=== PATIENT | male | born 1950 | race Caucasian/White ===

== ENCOUNTER 2018-02-03 18:17 | Emergency (ER) | payer OTHER ==
[2018-02-03 18:26] VITALS: BP 158/73; BMI 34.7
[2018-02-03 19:27] LABS: BASOPHILS % (AUTO) 0.3 % (0.2-1.0); EOSINOPHILS # (AUTO) 0.1 x10^3/uL (0.0-0.2); EOSINOPHILS % (AUTO) 0.5 % (0.9-2.9); HEMATOCRIT 38.3 % (42.0-54.0); HEMOGLOBIN 13.1 g/dL (13.5-18.0); LYMPHOCYTES # (AUTO) 2.3 X10^3/uL (1.3-2.9); LYMPHOCYTES % (AUTO) 20.1 % (21.0-51.0); MEAN CORPUSCULAR HEMOGLOBIN 29.8 pg (27.0-34.0); MEAN CORPUSCULAR HGB CONC 34.1 g/dL (33.0-35.0); MEAN CORPUSCULAR VOLUME 87.5 fL (80.0-100.0); MEAN PLATELET VOLUME 9.8 fL (7.4-11.0); MONOCYTES % (AUTO) 9.1 % (0.0-13.0); NEUTROPHILS # (AUTO) 7.8 x10^3/uL (2.2-4.8); PLATELET COUNT 228 X10^3/uL (150.0-450.0); RED BLOOD COUNT 4.38 X10^6/uL (4.7-6.0); RED CELL DISTRIBUTION WIDTH 14.2 % (11.6-16.5); WHITE BLOOD COUNT 11.2 X10^3/uL (3.6-10.0)
[2018-02-03 19:37] LABS: ALANINE AMINOTRANSFERASE 28 Units/L (12-78); ALBUMIN 3.5 g/dL (3.4-5.0); ALKALINE PHOSPHATASE 71 Units/L (46-116); ASPARTATE AMINO TRANSFERASE 12 Units/L (15-37); BLOOD UREA NITROGEN 15 mg/dL (7-18); CALCIUM 8.9 mg/dL (8.5-10.1); CARBON DIOXIDE 29.7 mmol/L (21-32); CHLORIDE 102 mmol/L (98-107); COR NA(FOR HYPERGLY) 140 mmol/L (136-145); CREATININE 1.09 mg/dL (0.70-1.30); SODIUM 138 mmol/L (136-145); TOTAL PROTEIN 7.5 g/dL (6.4-8.2); eGFR BLACK RACES > 60 (>60); eGFR NON BLACK RACES > 60 (>60)
[2018-02-03 19:40] LABS: LACTIC ACID 1.5 mmol/L (0.4-2.0)
--- NOTE | 2018-02-03 19:49 | CT ---
CT brain without contrast Indication: Headache Comparison: None available Technique: Multiple axial images of the brain were obtained from the skull base to the vertex without administra tion of IV contrast. Findings: No acute intraparenchymal hemorrhage or mass can be identified. No extra-axial fluid collections are seen. No alteration in the attenuation of the brain parenchyma can be identified to suggest acute o r subacute ischemic change. The ventricular system is symmetric and nondilated. The extracranial st ructures are grossly unremarkable. IMPRESSION: 1. No acute intracranial process is identified. Reported By:
--- NOTE | 2018-02-03 19:51 | CT ---
CT cervical spine without contrast Indication: Worse headache of life with neck pain Comparison: None available Technique: Multiple axial images of the cervical spine were obtained from the skull base to the thora cic inlet without administration of IV contrast. Sagittal and coronal reformats were performed and r eviewed. Findings: Alignment of the cervical spine is maintained. No evidence for acute cortical disruption or subluxat ion can be seen. The posterior elements appear unremarkable. The prevertebral soft tissues are norm al in their appearance. In addition, the surrounding paraspinous soft tissues are unremarkable. There is mild spondylosis at C2-3, C3-4 and C5-6. Addition there is moderate degenerative change with in the anterior atlantodental joint with ossification of the anterior longitudinal ligament at its or igin. There is facet arthropathy noted bilaterally at C2-3 and C3-4 slightly more severely affecting the left side IMPRESSION: No evidence for traumatic injury of the cervical spine. Multilevel facet arthropathy and spondylosis of the cervical spine as described. Reported By:
[2018-02-03] MEDS ORDERED: DILAUDID INJ IM ONE (20:19)
[2018-02-03] MEDS ORDERED: ZOFRAN TAB 4 MG PO ONE (20:20)
[2018-02-03] MEDS ORDERED: ZOFRAN TAB 4 MG ONE (20:24)
[2018-02-03] MEDS ORDERED: DILAUDID INJ ONE (20:25)
--- NOTE | 2018-02-03 20:30 | DR.GENAD ---
HPI - PCP Primary Care Physician: Trevor - Complaint/Symptoms Chief Complaint Doctors Comments: pt has 'bad headache'. No hx head trauma. Went to PCP and got norco and flexeril, no help with these Chief Complaint:: Patient c/o severe neck pain with stiffness that radiates to head and some blurred vision since tuesday. - Nurses notes reviewed Nurses Notes Review: Yes - Source History Provided: Patient, Significant Other - Mode of Arrival Mode of Arrival: Ambulatory - Timing Onset of Chief Complaint: 02/01/18 Came on: Gradually - Duration Duration: Since Onset How lon Duration: Days - Severity Severity: Severe - Modifying Factors Worsens:: neck movement Improves:: remaining still PMH - PMH Past Medical History: Yes Past Medical History: Hypertension, Diabetes Past Medical History Comment: penile implant, ok to have MRI per pt Past Surgical History: Yes Past Surgical History Comment: urinary surgery a few months ago - Family History History of Family Medical Conditions: Yes Family Medical History: Diabetes Mellitus, Coronary Artery Disease, Heart Failure, Hypertension - Social History Does patient currently use any type of tobacco product: No Have you used tobacco products in the last 12 months: No Type of Tobacco Use: None Does any household member use tobacco: No Alcohol Use: None Do you use any recreational Drugs:: No Lives With: Family Lives Where: Home - infectious screening In the last 2 months have you had wt loss of >10#?: NO Have you had fever, night sweats or hemotysis?: No Have you traveled outside the country in the last 6 months?: No Isolation: Standard ROS - Review of Systems Constitutional: Fever Eyes: No Symptoms Reported, Other (mentioned blurry vision to nurses but not to me) ENTM: No Symptoms Reported Respiratoy: No Symptoms Reported Cardiovascular: No Symptoms Reported Gastrointestinal/Abdominal: No Symptoms Reported Genitourinary: No Symptoms Reported Neurological: See HPI, Headache, Other (lots of stress at work). negative: Numbness, Paresthesia, Seizure, Tingling, Tremors, Weakness, Dizziness, Problems Walking, Speech Problem Musculoskeletal: See HPI, Neck Integumentary: No Symptoms Reported. negative: Rash Hematologic/Lymphatic: No Symptoms Reported Endocrine: No Symptoms Reported Psychiatric: No Symptoms Reported All Other Systems: Reviewed and Negative PE - Vital Signs Vitals: Temperature 99.6 F Pulse Rate 72 Respiratory Rate 20 Blood Pressure 158/73 O2 Sat by Pulse Oximetry 97 - General Limitations: No Limitations General Appearance: Alert, In No Apparent Distress - Head Head Exam: Normal Inspection, Atraumatic, Normocephalic - Eyes Eye exam: Normal Appearance, PERRL, EOMI. negative: Nystagmus, Miosis, Mydrasis - ENT ENT Exam: Normal Exam Mouth Exam: Normal Inspection Throat Exam: Tonsillar Erythema. negative: Tonsillar Exudate - Neck Neck Exam: Normal Inspection, Full ROM (FROM but with pain all planes of motion except flexion), Trachea Midline, Tenderness. negative: Meningismus, Lymphadenopathy, Thyromegaly - Chest Chest Inspection: Normal Inspection. negative: Tenderness - Respiratory Respiratory Exam: Normal Lung Sounds Bilat Respiratory Exam: Bilateral Clear to Auscultation - Cardiovascular Cardiovascular Exam: Regular Rate, Normal Rhythm, Normal Heart Sounds - Abdominal Exam Abdominal Exam: Normal Inspection, Normal Bowel Sounds, Soft. negative: Tenderness - Extremities Extremities Exam: Normal Inspection, Full ROM, Normal Capillary Refill. negative: Edema - Back Back Exam: Normal Inspection, Full ROM. negative: Tenderness, (R) CVA Tenderness, (L) CVA Tenderness - Neurologic Neurological Exam: Alert, Oriented X3, Normal Gait. negative: Motor Sensory Deficit - Psychiatric Psychiatric Exam: Normal Affect, Normal Mood - Skin Skin Exam: Warm, Dry, Intact. negative: Rash ROR - Labs Reviewed Laboratory Results Reviewed?: Yes Result Diagrams: 02/03/18 19:17 02/03/18 19:17 Laboratory: WBC 11.2 X10^3/uL (3.6-10.0) H 02/03/18 19:17 RBC 4.38 X10^6/uL (4.7-6.0) L 02/03/18 19:17 Hgb 13.1 g/dL (13.5-18.0) L 02/03/18 19:17 Hct 38.3 % (42.0-54.0) L 02/03/18 19:17 MCV 87.5 fL (80.0-100.0) 02/03/18 19:17 MCH 29.8 pg (27.0-34.0) 02/03/18 19:17 MCHC 34.1 g/dL (33.0-35.0) 02/03/18 19:17 RDW 14.2 % (11.6-16.5) 02/03/18 19:17 Plt Count 228 X10^3/uL (150.0-450.0) 02/03/18 19:17 MPV 9.8 fL (7.4-11.0) 02/03/18 19:17 Neut % (Auto) 70.0 % (42.0-75.0) 02/03/18 19:17 Lymph % (Auto) 20.1 % (21.0-51.0) L 02/03/18 19:17 [place] % (Auto) 9.1 % (0.0-13.0) 02/03/18 19:17 Eos % (Auto) 0.5 % (0.9-2.9) L 02/03/18 19:17 Baso % (Auto) 0.3 % (0.2-1.0) 02/03/18 19:17 Neut # (Auto) 7.8 x10^3/uL (2.2-4.8) H 02/03/18 19:17 Lymph # (Auto) 2.3 X10^3/uL (1.3-2.9) 02/03/18 19:17 [place] # (Auto) 1.0 x10^3/uL (0.3-0.8) H 02/03/18 19:17 Eos # (Auto) 0.1 x10^3/uL (0.0-0.2) 02/03/18 19:17 Baso # (Auto) 0.0 X10^3/uL (0.0-0.1) 02/03/18 19:17 Absolute Nucleated RBC 0.0 /100WBC 02/03/18 19:17 Sodium 138 mmol/L (136-145) 02/03/18 19:17 Corrected Sodium 140 mmol/L (136-145) 02/03/18 19:17 Potassium 4.4 mmol/L (3.5-5.1) 02/03/18 19:17 Chloride 102 mmol/L (98-107) 02/03/18 19:17 Carbon Dioxide 29.7 mmol/L (21-32) 02/03/18 19:17 BUN 15 mg/dL (7-18) 02/03/18 19:17 Creatinine 1.09 mg/dL (0.70-1.30) 02/03/18 19:17 Est GFR (MDRD) Af Amer > 60 (>60) 02/03/18 19:17 Est GFR (MDRD) Non-Af > 60 (>60) 02/03/18 19:17 Glucose 178 mg/dL (65-99) H 02/03/18 19:17 Lactic Acid 1.5 mmol/L (0.4-2.0) 02/03/18 19:17 Calcium 8.9 mg/dL (8.5-10.1) 02/03/18 19:17 Corrected Calcium TNP 02/03/18 19:17 Total Bilirubin 0.30 mg/dL (0.2-1.0) 02/03/18 19:17 AST 12 Units/L (15-37) L 02/03/18 19:17 ALT 28 Units/L (12-78) 02/03/18 19:17 Alkaline Phosphatase 71 Units/L (46-116) 02/03/18 19:17 Total Protein 7.5 g/dL (6.4-8.2) 02/03/18 19:17 Albumin 3.5 g/dL (3.4-5.0) 02/03/18 19:17 Globulin 4.0 g/dL (2.5-4.5) 02/03/18 19:17 Albumin/Globulin Ratio 0.9 Ratio (1.1-2.1) L 02/03/18 19:17 S. pyogenes (TEM-PCR) Not detected (NOT DETECT) 02/03/18 20:12 - XRAY XRAY Interpreted by: Radiologist XRAY Findings: CT head, cspine both nonacute - Diagnosis Discharge Problem: Neck pain, acute Headache Qualifiers: Headache type: unspecified Headache chronicity pattern: acute headache Intractability: not intractable Qualified Code(s): R51 - Headache - Discharge Plan Condition: Stable Prescriptions: Hydromorphone HCl [Dilaudid] 2 mg PO QID PRN #12 tablet PRN Reason: Headache - Follow ups/Referrals Follow ups/Referrals: [facility],None [Primary Care Provider] - 3 days - Instructions Additional Notes - Additional Notes Additional Notes: suspect viral meningitis in this pt. Discussed w/u, results at length with pt and spouse. Pt comfortable with d/c, got good relief with dilaudid IM. Pt encouraged to return if symptoms worsen or any other concerns.
== END 2018-02-03 21:00 | disposition home or self-care (01) ==
LOC: ER 18:29
DX: M54.2 Cervicalgia (principal); R51 Headache; M46.96 Unspecified inflammatory spondylopathy, lumbar region; M47.812 Spondylosis without myelopathy or radiculopathy, cervical region
CPT/HCPCS: 36415; 70450; 72125; 80053; 83605; 85025; 87651; 96372; 99283; S0181; J1170

== ENCOUNTER 2021-01-23 17:10 | Observation (INO) ==
[2021-01-23 17:20] VITALS: BMI 34.0
--- NOTE | 2021-01-23 17:23 | DR.EXTPAIN ---
HPI Time seen Time Seen by Provider: 01/23/21 17:22 PCP Primary Care Physician: CAMILA ROBERTS HPI Comment HPI Comment: 70 yo cm w/ pmh htn, DMII and TIA presents w/ dog bite of left hand onset 6 days. Bit by domesticated/ vaccinated dog in right hand and distal right forearm. C/o pain / swelling/ redness of the extremity. Seen by pcp and given tdap and started on clindamycin po. Reports reports today for worsening pain/ swelling/ redness. No f/c. No numbness/ weakness. No cough, cp, sob. Complaint/Symptoms Chief Complaint:: PATIENT CAME TO ER REPORTS DOG BITE TO RIGHT HAND. RIGHT HAND RED AND SWOLLEN. PATIENT SEEN PCP ON TUESDAY AND GIVEN TDAP AND CLINDAMYCIN, AND HYDROCODONE FOR PAIN. COVID-19 Coronavirus risk:travel/contact w/high risk person: No Has patient experienced Coronavirus symptoms: No Source History Provided: Patient Mode of arrival Mode of Arrival: Ambulatory Timing Onset of Chief Complaint: 01/18/21 PMH PMH Past Medical History: Yes Past Medical History: CVA, Diabetes, Dyslipidemia and Hyperthyroidism Past Surgical History: Yes Past Surgical History Comment: BILATERAL EYES Family History History of Family Medical Conditions: Yes Family Medical History: Diabetes Mellitus and Hypertension Family Medical History Comment: CHF Social History Alcohol Use: None Do you use any recreational Drugs:: No Lives With: Alone Lives Where: Home Travel Risk Coronavirus risk:travel/contact w/high risk person: No Has patient experienced Coronavirus symptoms: No Infectious screening In the last 2 months have you had wt loss of >10#?: NO Have you had fever, night sweats or hemotysis?: No Have you traveled outside the country in the last 6 months?: No Isolation: Standard ROS Review of Systems Constitutional: No Symptoms Reported; negative Chills and Fever Eyes: No Symptoms Reported ENTM: No Symptoms Reported Respiratoy: No Symptoms Reported Cardiovascular: No Symptoms Reported Gastrointestinal/Abdominal: No Symptoms Reported Genitourinary: No Symptoms Reported Neurological: No Symptoms Reported Musculoskeletal: No Symptoms Reported Integumentary: Change in Color, Rash and Wound Hematologic/Lymphatic: No Symptoms Reported Endocrine: No Symptoms Reported Psychiatric: No Symptoms Reported All Other Systems: Reviewed and Negative PE Vital Signs Vitals: Temperature 36.8 C Pulse Rate 60 Respiratory Rate 18 Blood Pressure [Left Arm] 134/66 Blood Pressure 175/81 O2 Sat by Pulse Oximetry 99 General Limitations: No Limitations General Appearance: Alert and In No Apparent Distress Head Head Exam: Normal Inspection Eyes Eye exam: Normal Appearance ENT ENT Exam: Normal Exam Neck Neck Exam: Normal Inspection Chest Chest Inspection: Normal Inspection Respiratory Respiratory Exam: Normal Lung Sounds Bilat Cardiovascular Cardiovascular Exam: Regular Rate and Normal Rhythm Abdominal Exam Abdominal Exam: Normal Inspection, Normal Bowel Sounds and Soft Extremities Extremities Exam: Normal Inspection Back Back Exam: Normal Inspection Neurological Neurological Exam: Alert, Oriented X3 and CN II-XII Intact Psychiatric Psychiatric Exam: Normal Affect and Normal Mood Skin Skin Exam: Warm, Dry, Intact and Normal Color Other Exam Other Exam: rue: errythemetous healing puncture gastelum radial aspect dorsum of right hand as well as additional wound of the distal radial aspect of right forearm. Soft tissue edema extending from hand to distal forearm with redness/ warmth. No proximal streaking. No axilla lymophadenopathy. Full arom of all digits of the right hand, good cap refill. MDM Differential Diagnosis Differential Diagnosis: Neurovascular Injury and Other (cellulitis, abscess formation, compartment syndrome ) COURSE Treatment Treatment: 70 yo m w/ pmh type 2 dm presents w/ rue pain/ redness/ swelling after sustaining dog bite 2 days ago. Non septic on arrival to ED. Failed outpatient clindamycin. Will switch to Rochephin/ flagyl iv. Blood cx's obtained. D/w Dr Knox whom agrees to admit. Education/Counseling Education/Counseling: Patient and Family Educated On: Treatment, Diagnosis, Prognosis and Needs for Follow Up ROR Labs Reviewed Laboratory Results Reviewed?: Yes Result Diagrams: 01/23/21 17:50 01/23/21 17:50 Laboratory: WBC 9.9 X10^3/uL (3.6-10.0) 01/23/21 17:50 RBC 4.34 X10^6/uL (4.7-6.0) L 01/23/21 17:50 Hgb 12.5 g/dL (13.5-18.0) L 01/23/21 17:50 Hct 38.0 % (42.0-54.0) L 01/23/21 17:50 MCV 87.6 fL (80.0-100.0) 01/23/21 17:50 MCH 28.8 pg (27.0-34.0) 01/23/21 17:50 MCHC 32.8 g/dL (33.0-35.0) L 01/23/21 17:50 RDW 13.8 % (11.6-16.5) 01/23/21 17:50 Plt Count 241 X10^3/uL (150.0-450.0) 01/23/21 17:50 MPV 9.8 fL (7.4-11.0) 01/23/21 17:50 Neut % (Auto) 60.8 % (42.0-75.0) 01/23/21 17:50 Lymph % (Auto) 23.6 % (21.0-51.0) 01/23/21 17:50 [place] % (Auto) 10.0 % (0.0-13.0) 01/23/21 17:50 Eos % (Auto) 4.2 % (0.9-2.9) H 01/23/21 17:50 Baso % (Auto) 1.4 % (0.2-1.0) H 01/23/21 17:50 Neut # (Auto) 6.0 x10^3/uL (2.2-4.8) H 01/23/21 17:50 Lymph # (Auto) 2.4 X10^3/uL (1.3-2.9) 01/23/21 17:50 [place] # (Auto) 1.0 x10^3/uL (0.3-0.8) H 01/23/21 17:50 Eos # (Auto) 0.4 x10^3/uL (0.0-0.2) H 01/23/21 17:50 Baso # (Auto) 0.1 X10^3/uL (0.0-0.1) 01/23/21 17:50 Absolute Nucleated RBC 0.0 /100WBC 01/23/21 17:50 Sodium 135 mmol/L (136-145) L 01/23/21 17:50 Corrected Sodium 138 mmol/L (136-145) 01/23/21 17:50 Potassium 3.9 mmol/L (3.5-5.1) 01/23/21 17:50 Chloride 101 mmol/L (98-107) 01/23/21 17:50 Carbon Dioxide 27.3 mmol/L (21-32) 01/23/21 17:50 BUN 24 mg/dL (7-18) H 01/23/21 17:50 Creatinine 1.21 mg/dL (0.70-1.30) 01/23/21 17:50 Est GFR (MDRD) Af Amer > 60 (>60) 01/23/21 17:50 Est GFR (MDRD) Non-Af > 60 (>60) 01/23/21 17:50 Glucose 217 mg/dL (65-99) H 01/23/21 17:50 Lactic Acid 0.8 mmol/L (0.4-2.0) 01/23/21 17:50 Calcium 9.2 mg/dL (8.5-10.1) 01/23/21 17:50 Corrected Calcium 9.9 mg/dL (8.5-10.1) 01/23/21 17:50 Total Bilirubin 0.20 mg/dL (0.2-1.0) 01/23/21 17:50 AST 10 Units/L (15-37) L 01/23/21 17:50 ALT 23 Units/L (12-78) 01/23/21 17:50 Alkaline Phosphatase 65 Units/L (46-116) 01/23/21 17:50 Total Protein 7.4 g/dL (6.4-8.2) 01/23/21 17:50 Albumin 3.1 g/dL (3.4-5.0) L 01/23/21 17:50 Globulin 4.3 g/dL (2.5-4.5) 01/23/21 17:50 Albumin/Globulin Ratio 0.7 Ratio (1.1-2.1) L 01/23/21 17:50 XRAY XRAY Interpreted by: Radiologist X-ray Results: right hand: soft tissue swelling, no fb Opioid Opioid Risk Tool Age (Noe box if 16-45): No History of Preadolescent Sexual Abuse: No Total: 0 Total Score Risk Category: Low Risk Copyright: [facility] predicting aberrant behaviors Diagnosis Discharge Problem: Cellulitis and abscess of hand Dog bite Qualifiers: Encounter type: subsequent encounter Qualified Code(s): W54.0XXD - Bitten by dog, subsequent encounter Instructions Forms: Patient Portal Social Distancing
[2021-01-23] MEDS ORDERED: FLAGYL IV PREMIX 500 MG BAG 500 MG/100 ML BAG IV ONE (17:48)
[2021-01-23] MEDS ORDERED: ROCEPHIN 1 GRAM IV PREMIX 1 G/50 ML IV.SOLN. IV ONE (17:48)
[2021-01-23] MEDS ORDERED: NS 100 ML IV 100 ML IV ONE (17:49)
[2021-01-23] MEDS: ROCEPHIN 1 GRAM IV PREMIX 1 G/50 ML IV.SOLN. IV SCH (18:03)
[2021-01-23 18:04] LABS: BASOPHILS # (AUTO) 0.1 X10^3/uL (0.0-0.1); BASOPHILS % (AUTO) 1.4 % (0.2-1.0); EOSINOPHILS # (AUTO) 0.4 x10^3/uL (0.0-0.2); EOSINOPHILS % (AUTO) 4.2 % (0.9-2.9); HEMOGLOBIN 12.5 g/dL (13.5-18.0); LYMPHOCYTES # (AUTO) 2.4 X10^3/uL (1.3-2.9); LYMPHOCYTES % (AUTO) 23.6 % (21.0-51.0); MEAN CORPUSCULAR HEMOGLOBIN 28.8 pg (27.0-34.0); MEAN CORPUSCULAR HGB CONC 32.8 g/dL (33.0-35.0); MEAN CORPUSCULAR VOLUME 87.6 fL (80.0-100.0); MEAN PLATELET VOLUME 9.8 fL (7.4-11.0); NEUTROPHILS % (AUTO) 60.8 % (42.0-75.0); PLATELET COUNT 241 X10^3/uL (150.0-450.0); RED BLOOD COUNT 4.34 X10^6/uL (4.7-6.0); RED CELL DISTRIBUTION WIDTH 13.8 % (11.6-16.5); WHITE BLOOD COUNT 9.9 X10^3/uL (3.6-10.0)
--- NOTE | 2021-01-23 18:08 | RAD ---
HAND, RIGHTHistory: DOG BITE TO RIGHT HAND. RIGHT HAND RED AND SWOLLEN.Comparison: NoneFindings/Impression: The 2nd-5th digits are all partially flexed on the AP and oblique views and are partially superimposed on the lateral view. Accounting for this, there is soft tissue swelling along the dorsum of the hand. No definite underlying fracture, malalignment or radiopaque foreign body is identified.Electronically signed by: LOCO MORRIS (Jan 23, 2021 18:06:24)
[2021-01-23 18:14] LABS: ALANINE AMINOTRANSFERASE 23 Units/L (12-78); ALBUMIN 3.1 g/dL (3.4-5.0); ALKALINE PHOSPHATASE 65 Units/L (46-116); ASPARTATE AMINO TRANSFERASE 10 Units/L (15-37); BLOOD UREA NITROGEN 24 mg/dL (7-18); CALCIUM 9.2 mg/dL (8.5-10.1); CARBON DIOXIDE 27.3 mmol/L (21-32); CHLORIDE 101 mmol/L (98-107); COR CA(FOR HYPOALB) 9.9 mg/dL (8.5-10.1); COR NA(FOR HYPERGLY) 138 mmol/L (136-145); CREATININE 1.21 mg/dL (0.70-1.30); SODIUM 135 mmol/L (136-145); TOTAL PROTEIN 7.4 g/dL (6.4-8.2); eGFR NON BLACK RACES > 60 (>60)
[2021-01-23 18:19] LABS: LACTIC ACID 0.8 mmol/L (0.4-2.0)
[2021-01-23] MEDS ORDERED: HumaLOG SC PRN (18:20)
[2021-01-23] MEDS ORDERED: NORCO 5/325 MG TAB PO PRN (18:20)
[2021-01-23] MEDS ORDERED: PATIENT'S HOME MEDICATION (Aspirin 81 mg Tablet) PO SCH (18:30)
[2021-01-23] MEDS: FLAGYL IV PREMIX 500 MG BAG 500 MG/100 ML BAG IV SCH ×2 (18:33→22:06)
[2021-01-23] MEDS ORDERED: AMBIEN PO PRN ×2 (21:55→21:57)
[2021-01-23] MEDS: LOPRESSOR TAB 25 MG PO SCH (22:06)
[2021-01-23] MEDS: NS 1000 ML 1,000 ML IV SCH (22:10)
--- NOTE | 2021-01-24 02:15 | DR.EXTPAIN ---
HPI Time seen Time Seen by Provider: 01/23/21 17:22 PCP Primary Care Physician: CAMILA ROBERTS HPI Comment HPI Comment: DUPLICATE NOTE ENTERED IN ERROR Complaint/Symptoms Chief Complaint:: PATIENT CAME TO ER REPORTS DOG BITE TO RIGHT HAND. RIGHT HAND RED AND SWOLLEN. PATIENT SEEN PCP ON TUESDAY AND GIVEN TDAP AND CLINDAMYCIN, AND HYDROCODONE FOR PAIN. COVID-19 Coronavirus risk:travel/contact w/high risk person: No Has patient experienced Coronavirus symptoms: No Source History Provided: Patient Mode of arrival Mode of Arrival: Ambulatory Timing Onset of Chief Complaint: 01/18/21 PMH PMH Past Medical History: Yes Past Medical History: CVA, Diabetes, Dyslipidemia and Hyperthyroidism Past Surgical History: Yes Past Surgical History Comment: BILATERAL EYES Family History History of Family Medical Conditions: Yes Family Medical History: Diabetes Mellitus and Hypertension Family Medical History Comment: CHF Social History Alcohol Use: None Do you use any recreational Drugs:: No Lives With: Alone Lives Where: Home Travel Risk Coronavirus risk:travel/contact w/high risk person: No Has patient experienced Coronavirus symptoms: No Infectious screening In the last 2 months have you had wt loss of >10#?: NO Have you had fever, night sweats or hemotysis?: No Have you traveled outside the country in the last 6 months?: No Isolation: Standard PE Vital Signs Vitals: Temperature 36.8 C Pulse Rate 60 Respiratory Rate 18 Blood Pressure [Left Arm] 134/66 Blood Pressure 175/81 O2 Sat by Pulse Oximetry 99 ROR Labs Reviewed Result Diagrams: 01/23/21 17:50 01/23/21 17:50 Laboratory: WBC 9.9 X10^3/uL (3.6-10.0) 01/23/21 17:50 RBC 4.34 X10^6/uL (4.7-6.0) L 01/23/21 17:50 Hgb 12.5 g/dL (13.5-18.0) L 01/23/21 17:50 Hct 38.0 % (42.0-54.0) L 01/23/21 17:50 MCV 87.6 fL (80.0-100.0) 01/23/21 17:50 MCH 28.8 pg (27.0-34.0) 01/23/21 17:50 MCHC 32.8 g/dL (33.0-35.0) L 01/23/21 17:50 RDW 13.8 % (11.6-16.5) 01/23/21 17:50 Plt Count 241 X10^3/uL (150.0-450.0) 01/23/21 17:50 MPV 9.8 fL (7.4-11.0) 01/23/21 17:50 Neut % (Auto) 60.8 % (42.0-75.0) 01/23/21 17:50 Lymph % (Auto) 23.6 % (21.0-51.0) 01/23/21 17:50 Lane % (Auto) 10.0 % (0.0-13.0) 01/23/21 17:50 Eos % (Auto) 4.2 % (0.9-2.9) H 01/23/21 17:50 Baso % (Auto) 1.4 % (0.2-1.0) H 01/23/21 17:50 Neut # (Auto) 6.0 x10^3/uL (2.2-4.8) H 01/23/21 17:50 Lymph # (Auto) 2.4 X10^3/uL (1.3-2.9) 01/23/21 17:50 Lane # (Auto) 1.0 x10^3/uL (0.3-0.8) H 01/23/21 17:50 Eos # (Auto) 0.4 x10^3/uL (0.0-0.2) H 01/23/21 17:50 Baso # (Auto) 0.1 X10^3/uL (0.0-0.1) 01/23/21 17:50 Absolute Nucleated RBC 0.0 /100WBC 01/23/21 17:50 Sodium 135 mmol/L (136-145) L 01/23/21 17:50 Corrected Sodium 138 mmol/L (136-145) 01/23/21 17:50 Potassium 3.9 mmol/L (3.5-5.1) 01/23/21 17:50 Chloride 101 mmol/L (98-107) 01/23/21 17:50 Carbon Dioxide 27.3 mmol/L (21-32) 01/23/21 17:50 BUN 24 mg/dL (7-18) H 01/23/21 17:50 Creatinine 1.21 mg/dL (0.70-1.30) 01/23/21 17:50 Est GFR (MDRD) Af Amer > 60 (>60) 01/23/21 17:50 Est GFR (MDRD) Non-Af > 60 (>60) 01/23/21 17:50 Glucose 217 mg/dL (65-99) H 01/23/21 17:50 Lactic Acid 0.8 mmol/L (0.4-2.0) 01/23/21 17:50 Calcium 9.2 mg/dL (8.5-10.1) 01/23/21 17:50 Corrected Calcium 9.9 mg/dL (8.5-10.1) 01/23/21 17:50 Total Bilirubin 0.20 mg/dL (0.2-1.0) 01/23/21 17:50 AST 10 Units/L (15-37) L 01/23/21 17:50 ALT 23 Units/L (12-78) 01/23/21 17:50 Alkaline Phosphatase 65 Units/L (46-116) 01/23/21 17:50 Total Protein 7.4 g/dL (6.4-8.2) 01/23/21 17:50 Albumin 3.1 g/dL (3.4-5.0) L 01/23/21 17:50 Globulin 4.3 g/dL (2.5-4.5) 01/23/21 17:50 Albumin/Globulin Ratio 0.7 Ratio (1.1-2.1) L 01/23/21 17:50 Opioid Opioid Risk Tool Age (Noe box if 16-45): No History of Preadolescent Sexual Abuse: No Total: 0 Total Score Risk Category: Low Risk Copyright: [facility] predicting aberrant behaviors Diagnosis Discharge Problem: Cellulitis and abscess of hand Dog bite Qualifiers: Encounter type: subsequent encounter Qualified Code(s): W54.0XXD - Bitten by dog, subsequent encounter Instructions Forms: Patient Portal Social Distancing
[2021-01-24 04:56] LABS: BASOPHILS # (AUTO) 0.1 X10^3/uL (0.0-0.1); BASOPHILS % (AUTO) 0.8 % (0.2-1.0); EOSINOPHILS # (AUTO) 0.2 x10^3/uL (0.0-0.2); EOSINOPHILS % (AUTO) 2.9 % (0.9-2.9); HEMATOCRIT 35.4 % (42.0-54.0); HEMOGLOBIN 11.6 g/dL (13.5-18.0); LYMPHOCYTES # (AUTO) 2.4 X10^3/uL (1.3-2.9); LYMPHOCYTES % (AUTO) 29.7 % (21.0-51.0); MEAN CORPUSCULAR HEMOGLOBIN 28.6 pg (27.0-34.0); MEAN CORPUSCULAR HGB CONC 32.8 g/dL (33.0-35.0); MEAN CORPUSCULAR VOLUME 87.2 fL (80.0-100.0); MEAN PLATELET VOLUME 10.2 fL (7.4-11.0); MONOCYTES # (AUTO) 0.9 x10^3/uL (0.3-0.8); MONOCYTES % (AUTO) 11.3 % (0.0-13.0); NEUTROPHILS # (AUTO) 4.4 x10^3/uL (2.2-4.8); NEUTROPHILS % (AUTO) 55.3 % (42.0-75.0); PLATELET COUNT 231 X10^3/uL (150.0-450.0); RED BLOOD COUNT 4.06 X10^6/uL (4.7-6.0)
[2021-01-24 05:05] LABS: ALANINE AMINOTRANSFERASE 19 Units/L (12-78); ALBUMIN 2.7 g/dL (3.4-5.0); ALKALINE PHOSPHATASE 53 Units/L (46-116); ASPARTATE AMINO TRANSFERASE 11 Units/L (15-37); BLOOD UREA NITROGEN 21 mg/dL (7-18); CALCIUM 8.7 mg/dL (8.5-10.1); CARBON DIOXIDE 29.1 mmol/L (21-32); CHLORIDE 104 mmol/L (98-107); COR CA(FOR HYPOALB) 9.7 mg/dL (8.5-10.1); COR NA(FOR HYPERGLY) 139 mmol/L (136-145); CREATININE 1.16 mg/dL (0.70-1.30); SODIUM 138 mmol/L (136-145); TOTAL PROTEIN 6.5 g/dL (6.4-8.2); eGFR NON BLACK RACES > 60 (>60)
[2021-01-24] MEDS: NS 1000 ML 1,000 ML IV SCH ×3 (06:13→10:29)
[2021-01-24] MEDS: FLAGYL IV PREMIX 500 MG BAG 500 MG/100 ML BAG IV SCH ×3 (06:22→14:31)
[2021-01-24] MEDS ORDERED: ASPIRIN EC 81 MG PO SCH (09:00)
[2021-01-24] MEDS ORDERED: COZAAR PO SCH (09:00)
[2021-01-24] MEDS ORDERED: LIPITOR TAB 40 MG PO SCH (09:00)
[2021-01-24] MEDS: LOPRESSOR TAB 25 MG PO SCH (09:40)
[2021-01-24] MEDS: ROCEPHIN 1 GRAM IV PREMIX 1 G/50 ML IV.SOLN. IV SCH (09:40)
[2021-01-24 11:22] LABS: ABG BASE EXCESS 4.9 mmol/L (-2.0-2.0); ABG HCO3 29.2 mmol/L (22-26)
--- NOTE | 2021-01-24 11:52 | RAD ---
HISTORYcovidSTUDYAP chestCOMPARISONFebruary 2020FINDINGSStable normal heart size with clear lungs and pleural spaces. There is no mediastinal or hilar abnormality.IMPRESSIONNo interval change or acute chest abnormality demonstrated.Electronically signed by: VADIM RODRIGUEZ (Jan 24, 2021 11:50:32)
[2021-01-24] MEDS ORDERED: HumuLIN R SUBCUT PRN (12:12)
[2021-01-24] MEDS ORDERED: LEVAQUIN PREMIX IV 500 MG 500 MG/100 ML BAG IV ONE (14:16)
[2021-01-24 16:17] VITALS: BP 152/69
== END 2021-01-24 17:00 | disposition home or self-care (01) ==
LOC: ER 17:13 → MED/SURG 18:18 → INTOOBSV 18:18 → ICU 18:55
PROVIDERS: ADMIT Internal Medicine; ATTEND Internal Medicine
DX: L03.113 Cellulitis of right upper limb; S60.571A Other superficial bite of hand of right hand, initial encounter; W54.0XXA Bitten by dog, initial encounter; E87.1 Hypo-osmolality and hyponatremia; M79.641 Pain in right hand; I10 Essential (primary) hypertension; R60.0 Localized edema; Z86.16 Personal history of COVID-19; U07.1 COVID-19